=== PATIENT | female | born 1955 | race Caucasian/White ===

== ENCOUNTER 2024-09-12 08:27 | Inpatient (IN) | payer MEDICARE, MEDICAID ==
[2024-09-06 15:37] LABS: BASOPHILS % (AUTO) 0.4 % (0-1); EOSINOPHILS % (AUTO) 1.3 % (0-6); LYMPHOCYTES # (AUTO) 0.6 X10'3 (1.1-4.8); LYMPHOCYTES % (AUTO) 15.7 % (21-51); MEAN CORPUSCULAR HEMOGLOBIN 29.4 PG (27.0-31.0); MEAN CORPUSCULAR HGB CONC 32.1 g/dL (33.0-36.5); MEAN CORPUSCULAR VOLUME 91.4 FL (78-98); MEAN PLATELET VOLUME 10.3 FL (7.4-10.4); MONOCYTES # (AUTO) 0.4 X10'3 (0-0.9); MONOCYTES % (AUTO) 11.7 % (2-12); NEUTROPHILS # (AUTO) 2.7 X10'3 (1.8-7.7); NEUTROPHILS % (AUTO) 70.9 % (42-75); PRE OP HEMATOCRIT 35.1 % (35.0-45.0); PRE OP HEMOGLOBIN 11.3 g/dL (12.0-16.0); PRE OP WHITE BLOOD COUNT 3.8 10'3 (4.8-10.8); RED BLOOD COUNT 3.84 X10'6 (4.20-5.60); RED CELL DISTRIBUTION WIDTH 16.7 % (11.5-14.5)
[2024-09-06 15:47] LABS: HEMOGLOBIN A1C 5.9 % (4.5-6.2)
[2024-09-06 15:59] LABS: ALBUMIN/GLOBULIN RATIO 0.7 (1.1-1.5); ALKALINE PHOSPHATASE 137 IU/L (46-116); BLOOD UREA NITROGEN 18 MG/DL (7-18); BUN/CREATININE RATIO 16.5 (10.0-20.0); CALCIUM 9.2 MG/DL (8.5-10.1); CHLORIDE 107 MMOL/L (99-107); CREATININE 1.09 MG/DL (0.40-0.90); PRE OP ALT 43 U/L (30-65); PRE OP ANION GAP 8 (8-16); PRE OP AST 55 U/L (10-37); PRE OP BILIRUB, TOTAL 0.7 MG/DL (0.0-1.0); PRE OP GLUCOSE 160 MG/DL (70-104); PRE OP POTASSIUM 3.7 MMOL/L (3.4-5.1); PRE OP SODIUM 140 MMOL/L (135-145); THYROID STIMULATING HORMONE 0.46 ulU/ml (0.34-4.50); TOTAL CARBON DIOXIDE 25.1 MMOL/L (24-32); TOTAL PROTEIN 7.2 G/DL (6.4-8.2); eGFR 50 ML/MIN
[2024-09-06 16:30] LABS: PRE OP PLATELET COUNT 96 X10'3 (140-440)
[~2024-09-12] VITALS: Ht 154.9 cm; Wt 107.6 kg
[2024-09-12] VITALS (19 sets, daily range): BP systolic 116–151; BP diastolic 38–89; PULSE 54–84; RESP 10–18; TEMP 97.5–98.9; O2SAT 94–100
[2024-09-12] MEDS: acetaminophen 1,000mg/100ml IV 100 ML IV ONE (01:32)
[~2024-09-12 08:27] MED LIST: AMLO2.5T2 PO; ASPI81TA52 PO; BACL-11 PO; FERR325T28 PO; FLUT16SP2 BOTHNARES; GLIM4TAB7 PO; HYDR25TA4 PO; LANTUS SQ; LEVO150C4 PO; LOSA100T58 PO; MAGN200T5 PO; MELO-102 PO; OMEP40CA21 PO; SEMA2PEN SUBCUT; SIMV-42 PO; SITA100T15 PO; SUCR1TAB PO
[2024-09-12] MEDS: famotidine 20mg tablet PO ONE (12:17)
[2024-09-12] MEDS: tranexamic acid 650mg tablet PO ONE (12:18)
[2024-09-12] MEDS: ringers solution, lacted 1,000 ML IV SCH ×2 (12:19→14:25)
[2024-09-12] MEDS: vancomycin 1,500 MG in NS 300ml IV soln IV ONE (12:20)
[2024-09-12] MEDS ORDERED: tranexamic acid 100mg/ml inj. ONE (12:39)
[2024-09-12] MEDS ORDERED: BUPIVACAINE/MELOXICAM 14 ML VIAL IL ONE (12:39)
[2024-09-12] MEDS ORDERED: ROPIVAcaine 0.5% (5mg/ml) 30ml vial ONE ×2 (12:39→16:16)
[2024-09-12] MEDS: ceFAZolin 2gm in dextrose, iso 50 ML IV ONE (12:43)
[2024-09-12] MEDS ORDERED: cloNIDine hcl/PF 100mcg/ml inj ONE (12:59)
[2024-09-12] MEDS ORDERED: hydrALAZINE 20mg/ml inj. IV PRN (14:25)
[2024-09-12] MEDS ORDERED: meperidine/PF 25mg/ml syringe IV PRN ×3 (14:25)
[2024-09-12] MEDS ORDERED: morphine 2 MG/ML inj. syringe IV PRN (14:25)
[2024-09-12] MEDS ORDERED: proCHLORperazine 10 MG/2 ml inj IV PRN (14:25)
[2024-09-12] MEDS ORDERED: morphine 4 MG/ML inj SYRINge IV PRN (14:25)
[2024-09-12] MEDS ORDERED: labetalol 20mg/4ml (5mg/ml) syringe IV PRN (14:25)
[2024-09-12] MEDS ORDERED: ondansetron/PF 4mg/2ml inj IV PRN ×2 (14:25→18:15)
[2024-09-12] MEDS ORDERED: sevoflurane 250ml liquid IH ONE (15:32)
[2024-09-12] MEDS ORDERED: fentaNYL/PF 50MCG/1 ML 2ML syringe ONE (15:38)
[2024-09-12] MEDS ORDERED: midazolam 1 mg/ML 2ml injection ONE (15:38)
[2024-09-12] MEDS ORDERED: fentaNYL /PF 50mcg/ml 5ml ampule ONE (16:15)
[2024-09-12] MEDS ORDERED: dexamethasone sod phosphate 4mg/ml inj. ONE (16:16)
[2024-09-12] MEDS ORDERED: LIDOcaine 1%/PF 5ML 10 MG/ML VIAL ONE (16:16)
[2024-09-12] MEDS ORDERED: propofol inj 20 ML IV ONE (16:16)
[2024-09-12] MEDS ORDERED: 0.9 % SODIUM CHLORIDE 10 ML VIAL ONE ×2 (16:16)
[2024-09-12] MEDS ORDERED: ondansetron/PF 4mg/2ml inj ONE (16:16)
[2024-09-12] MEDS: BUPIVACAINE/MELOXICAM 14 ML VIAL IL ONE (16:49)
[2024-09-12] MEDS ORDERED: HYDROmorphone inj. 0.5 MG/0.5 ML DISP.SYRIN IV PRN (18:15)
[2024-09-12] MEDS ORDERED: diphenhydrAMINE 25mg capsule PO PRN ×2 (18:15)
[2024-09-12] MEDS ORDERED: HYDROmorphone 1 mg/ml syringe IV PRN (18:15)
[2024-09-12] MEDS ORDERED: acetaminophen 325mg tablet PO PRN (18:15)
[2024-09-12] MEDS: potassium cl 20mEq in 1/2 NS 1,000 ML IV SCH (18:15)
[2024-09-12] MEDS ORDERED: naloxone 0.4 mg/ml inj IV PRN (18:15)
[2024-09-12] MEDS ORDERED: vancomycin/NS 1 GM ADD-VANTAGE 250 ML IV SCH (20:00)
[2024-09-12] MEDS: sennosides 8.6mg tablet PO SCH (21:00)
[2024-09-12] MEDS: insulin glargine (Lantus) pen - multi-dose SQ SCH (22:04)
[2024-09-12] MEDS: simvastatin 20mg tablet PO SCH (22:05)
[2024-09-12] MEDS: baclofen 10mg tablet PO SCH (22:06)
[2024-09-12] MEDS: magnesium oxide 400mg tablet PO SCH (22:06)
[2024-09-12] MEDS: acetaminophen 325mg tablet PO SCH (22:06)
[2024-09-12] MEDS: MELOXICAM 7.5 MG TABLET PO SCH (22:06)
[2024-09-12] MEDS: VANCOMYCIN 1GM 200ML H20 (PEG) 200 ML IV SCH (22:07)
[2024-09-13] VITALS (11 sets, daily range): BP systolic 105–182; BP diastolic 40–61; PULSE 63–89; RESP 16–20; TEMP 97.2–98.3; O2SAT 96–100
[2024-09-13] MEDS: ceFAZolin/D5W- 1GM premix 50 ML IV SCH (00:23)
[2024-09-13] MEDS: oxyCODONE IR 5mg (immed. release) tablet PO PRN (04:44)
[2024-09-13 06:25] LABS: BASOPHILS % (AUTO) 0.1 % (0-1); EOSINOPHILS % (AUTO) 0 % (0-6); HEMATOCRIT 29.8 % (35.0-45.0); HEMOGLOBIN 9.4 g/dl (12.0-16.0); LYMPHOCYTES # (AUTO) 0.4 X10'3 (1.1-4.8); LYMPHOCYTES % (AUTO) 9.6 % (21-51); MEAN CORPUSCULAR HEMOGLOBIN 28.9 PG (27.0-31.0); MEAN CORPUSCULAR HGB CONC 31.6 g/dL (33.0-36.5); MEAN CORPUSCULAR VOLUME 91.4 FL (78-98); MEAN PLATELET VOLUME 10.4 FL (7.4-10.4); MONOCYTES # (AUTO) 0.2 X10'3 (0-0.9); MONOCYTES % (AUTO) 4.4 % (2-12); NEUTROPHILS # (AUTO) 3.9 X10'3 (1.8-7.7); NEUTROPHILS % (AUTO) 85.9 % (42-75); PLATELET COUNT 80 X10'3 (140-440); RED BLOOD COUNT 3.26 X10'6 (4.20-5.60); RED CELL DISTRIBUTION WIDTH 16.6 % (11.5-14.5); WHITE BLOOD COUNT 4.5 X10'3 (4.5-11.0)
[2024-09-13 06:45] LABS: ANION GAP 6 (8-16); CHLORIDE 105 MMOL/L (99-107); POTASSIUM 4.6 MMOL/L (3.5-5.1); SODIUM 135 MMOL/L (135-145)
[2024-09-13] MEDS: levoTHYROXINE 25mcg tablet PO SCH (07:39)
[2024-09-13] MEDS: levoTHYROXINE 125mcg tablet PO SCH (07:39)
[2024-09-13] MEDS: SITAGLIPTIN 100 MG PO SCH (08:00)
[2024-09-13] MEDS: amLODIPine 5mg tablet PO SCH (08:23)
[2024-09-13] MEDS: sucralfate 1 gm tablet PO SCH (08:23)
[2024-09-13] MEDS: pantoprazole 40mg Tablet.DR PO SCH (08:24)
[2024-09-13] MEDS: ferrous sulfate 325mg tablet PO SCH (08:24)
[2024-09-13] MEDS: HYDROchlorothiazide 25mg tablet PO SCH (08:25)
[2024-09-13] MEDS: aspirin 325mg tablet PO SCH (08:25)
[2024-09-13] MEDS: fluticasone nasal spray 16GM bottle NS SCH (08:26)
[2024-09-13] MEDS: insulin glargine (Lantus) pen - multi-dose SQ SCH (08:30)
[2024-09-13] MEDS: losartan 50mg tablet PO SCH (10:31)
[2024-09-13] MEDS ORDERED: celeCOXIB 100mg capsule PO SCH (20:00)
[2024-09-13] MEDS: nystatin 15 GM powder TP SCH (22:03)
[2024-09-14 05:52] LABS: BASOPHILS % (AUTO) 0.1 % (0-1); EOSINOPHILS % (AUTO) 0.1 % (0-6); HEMATOCRIT 26.5 % (35.0-45.0); HEMOGLOBIN 8.7 g/dl (12.0-16.0); LYMPHOCYTES # (AUTO) 0.9 X10'3 (1.1-4.8); LYMPHOCYTES % (AUTO) 12.5 % (21-51); MEAN CORPUSCULAR HEMOGLOBIN 29.8 PG (27.0-31.0); MEAN CORPUSCULAR HGB CONC 32.7 g/dL (33.0-36.5); MEAN PLATELET VOLUME 10.6 FL (7.4-10.4); MONOCYTES # (AUTO) 0.8 X10'3 (0-0.9); MONOCYTES % (AUTO) 11.3 % (2-12); NEUTROPHILS # (AUTO) 5.2 X10'3 (1.8-7.7); PLATELET COUNT 97 X10'3 (140-440); RED BLOOD COUNT 2.91 X10'6 (4.20-5.60); RED CELL DISTRIBUTION WIDTH 16.9 % (11.5-14.5); WHITE BLOOD COUNT 6.9 X10'3 (4.5-11.0)
[2024-09-14 06:00] VITALS: BP 139/46; PULSE 64; RESP 18; TEMP 97.7; O2SAT 100
[2024-09-14] MEDS: oxyCODONE IR 5mg (immed. release) tablet PO PRN (06:05)
[2024-09-14 10:00] VITALS: BP 111/47; PULSE 64; RESP 16; TEMP 98; O2SAT 98
[2024-09-14 18:30] VITALS: BP 121/46; PULSE 65; RESP 18; TEMP 98; O2SAT 100
[2024-09-14 22:00] VITALS: BP 120/39; PULSE 64; RESP 20; TEMP 97.6; O2SAT 97
[2024-09-14] MEDS: acetaminophen 325mg tablet PO PRN (22:50)
[2024-09-15 06:00] VITALS: BP 141/46; PULSE 67; RESP 16; TEMP 97.6; O2SAT 99
[2024-09-15 06:01] LABS: BASOPHILS % (AUTO) 0.4 % (0-1); EOSINOPHILS % (AUTO) 0.2 % (0-6); HEMATOCRIT 25.3 % (35.0-45.0); HEMOGLOBIN 8.3 g/dl (12.0-16.0); LYMPHOCYTES # (AUTO) 0.8 X10'3 (1.1-4.8); LYMPHOCYTES % (AUTO) 15.6 % (21-51); MEAN CORPUSCULAR HEMOGLOBIN 29.6 PG (27.0-31.0); MEAN CORPUSCULAR HGB CONC 32.6 g/dL (33.0-36.5); MEAN CORPUSCULAR VOLUME 90.8 FL (78-98); MEAN PLATELET VOLUME 10.7 FL (7.4-10.4); MONOCYTES # (AUTO) 0.7 X10'3 (0-0.9); MONOCYTES % (AUTO) 12.7 % (2-12); NEUTROPHILS # (AUTO) 3.7 X10'3 (1.8-7.7); NEUTROPHILS % (AUTO) 71.1 % (42-75); PLATELET COUNT 89 X10'3 (140-440); RED BLOOD COUNT 2.78 X10'6 (4.20-5.60); RED CELL DISTRIBUTION WIDTH 16.4 % (11.5-14.5); WHITE BLOOD COUNT 5.2 X10'3 (4.5-11.0)
[2024-09-15] MEDS: linagliptin 5mg tablet PO SCH (07:53)
[2024-09-15 10:00] VITALS: BP 122/37; PULSE 66; RESP 15; TEMP 98.1; O2SAT 98
[2024-09-15 18:00] VITALS: BP 151/49; PULSE 77; RESP 14; TEMP 97.4; O2SAT 100
[2024-09-15 22:00] VITALS: BP 133/39; PULSE 80; RESP 16; TEMP 97.5; O2SAT 98
[2024-09-16 06:00] VITALS: BP 101/57; PULSE 83; RESP 16; TEMP 97.7; O2SAT 99
[2024-09-16] MEDS: magnesium hydroxide 30ml (MOM) UD suspension PO PRN (09:48)
[2024-09-16 10:00] VITALS: BP 92/45; PULSE 80; RESP 16; TEMP 97.5; O2SAT 98
[2024-09-16] MEDS: bisacodyl 10mg suppository rectal RC PRN (14:56)
[2024-09-16 18:00] VITALS: BP 120/41; PULSE 81; RESP 16; TEMP 98.1; O2SAT 100
[2024-09-16 22:00] VITALS: BP 108/45; PULSE 91; RESP 15; TEMP 98.1; O2SAT 100
[2024-09-17 06:00] VITALS: BP 104/57; PULSE 81; RESP 15; TEMP 97.7; O2SAT 100
[2024-09-17 10:00] VITALS: BP 137/59; PULSE 65; RESP 18; TEMP 97.2; O2SAT 93
[2024-09-17 18:00] VITALS: BP 110/38; PULSE 74; RESP 18; TEMP 98; O2SAT 100
[2024-09-17 19:45] VITALS: O2SAT 100
[2024-09-17 22:00] VITALS: BP 118/42; PULSE 71; RESP 16; TEMP 98.4; O2SAT 92
[2024-09-18 06:00] VITALS: BP 112/34; PULSE 75; RESP 20; TEMP 98.6; O2SAT 95
[2024-09-18] MEDS: TYPE IN GENERIC & BRAND NAME OF PATIENT MED STRENGTH & FORM SQ SCH (08:00)
[2024-09-18 10:30] VITALS: BP 142/44; PULSE 78; RESP 16; TEMP 97.7; O2SAT 98
[2024-09-18 18:00] VITALS: BP 131/44; PULSE 101; RESP 16; TEMP 98; O2SAT 99
[2024-09-18 19:00] VITALS: RESP 16; O2SAT 99
[2024-09-18 22:00] VITALS: BP 119/35; PULSE 75; RESP 20; TEMP 98.4; O2SAT 100
[2024-09-19 06:00] VITALS: BP 126/41; PULSE 71; RESP 22; TEMP 98.2; O2SAT 99
[2024-09-19 07:38] VITALS: RESP 20
[2024-09-19 09:05] VITALS: BP_SYST 130; PULSE 74
[2024-09-19 11:04] VITALS: RESP 16
== END 2024-09-19 10:30 | DRG 470 ==
LOC: PAS IN 11:09 → ORTHO 4S 19:10
PROVIDERS: ADMIT Orthopaedic Surgery; ATTEND Orthopaedic Surgery
PROC: 0SRC0J9 Replacement of Right Knee Joint with Synthetic Substitute, Cemented, Open Approach (ICD-10-PCS; principal; 2024-09-12 15:32)
DX: M17.11 Unilateral primary osteoarthritis, right knee (principal)
CPT/HCPCS: 36415; 80051; 80053; 82948; 83036; 84443; 85025; 87081; 97110; 97116; 97162; 97530; 97535; A4215; A4618; A6212; A6213; A6223; A6250; A6449; A7000; C1713; C1776; G0378; J0690; J0735; J1100; J1815; J2250; J2405; J2704; J2795; J3010; J3372; J3480; J3490; J7120